=== PATIENT | female | born 1940 | race Caucasian/White ===

== ENCOUNTER → 2019-03-10 | Outpatient (REF) | payer MEDICARE, OTHER ==
[2019-03-10 14:50] LABS: FOLATE 17.2 NG/ML; THYROID STIMULATING HORMONE 2.35 uIU/ML (0.358-3.740)
[2019-03-17 14:07] LABS: ACETYLCHOLINE RCPTOR BINDING A < 0.03 nmol/L (0.00-0.24); ACETYLCHOLINE RCPTOR BLOCK AB 5 % (0-25); CERULOPLASMIN 24.3 mg/dL (19.0-39.0); COPPER PLASMA 109 ug/dL (72-166); STRIATIONAL ANTIBODIES Negative (Neg:<1:40); VITAMIN B6,PYRIDOXAL PHOSPHATE 28.6 ug/L (2.0-32.8); VITAMIN E(ALPHA TOCOPHEROL) 19.7 mg/L (9.0-29.0); VITAMIN E(GAMMA TOCOPHEROL) 0.4 mg/L (0.5-4.9)
== END ==
LOC: M LABNEURO 11:29
PROVIDERS: ATTEND Psychiatry & Neurology Neurology
DX: E03.9 Hypothyroidism, unspecified (principal); E53.8 Deficiency of other specified B group vitamins